=== PATIENT | male | born 1950 | race Caucasian/White ===

== ENCOUNTER 2017-08-14 19:05 | Emergency (ER) | payer BC, OTHER ==
[~2017-08-14] VITALS: Ht 182.9 cm; Wt 67.6 kg
[~2017-08-14 19:05] MED LIST: MULT-506 PO
[2017-08-14 19:08] VITALS: TEMP 36.5; Ht 182.9 cm; Wt 67.6 kg
--- NOTE | 2017-08-14 19:23 | EMERGENCY ROOM VISIT NOTE ---
History Report prepared by Johana: Desmond Gerber Under the Supervision of: Dr. Jamil Horowitz M.D. First contact with patient: 19:13 Chief Complaint: HYPERTENSION Stated Complaint: ELEVATED BLOOD PRESSURE History of Present Illness The patient is a 66 year old male who presents to the Emergency Room with complaints of constant hypertension starting earlier today. The patient states that today he had a blood pressure of 164/142, and he states that he feels like he has some tension in his head. He denies any chest pain or shortness of breath. He denies any weakness in his arms or legs. The patient notes that he was put on amlodipine a month ago, and he states that last night his blood pressure was a little high as well but not as bad as today. He notes that he takes his medications in the morning. The patient reports that he had a blood panel done yesterday, though he does not think that he has every had his thyroid checked before. He states that he has had anxiety problems before with chest pain, and he states that this feels different since he does not have chest pain. Source of History: patient Onset: today Position: other (global) Symptom Intensity: 164/142 Quality: other (hypertension) Associated Symptoms: No chest pain, No SOB, No weakness Note: Associated symptoms: Tension in his head. Review of Systems See HPI for pertinent positives & negatives. A total of 10 systems reviewed and were otherwise negative. Past Medical & Surgical Medical Problems: (1) Carcinoma of prostate (2) Hypercholesterolemia (3) Prostatectomy Social History Smoking Status: Never Smoker Marital Status: Occupation Status: employed Current/Historical Medications Scheduled Multivitamin (Multivitamin), 1 TAB PO DAILY Allergies Coded Allergies: Penicillins (Unverified Allergy, Unknown, unknown - other, 12/31/12) Physical Exam Vital Signs Date Time Temp Pulse Resp B/P (MAP) Pulse Ox O2 Delivery O2 Flow Rate FiO2 08/14/17 20:44 88 17 161/84 96 08/14/17 20:01 149/82 08/14/17 20:00 84 18 96 Room Air 08/14/17 19:40 93 18 163/86 96 Room Air 08/14/17 19:40 96 Room Air 08/14/17 19:08 36.5 112 20 180/95 98 Room Air Physical Exam GENERAL: Patient is in no acute distress. HEENT: No acute trauma, normocephalic atraumatic, mucous membranes moist, no nasal congestion, no scleral icterus. NECK: No stridor, no adenopathy, no meningismus, trachea is midline. LUNGS: Clear to auscultation bilaterally, no wheeze, no rhonchi, breath sounds equal. HEART: Without murmurs gallops or rubs, regular rate and rhythm. ABDOMEN: Soft, nontender, bowel sounds positive, no hernias, no peritonitis. EXTREMITIES: No cyanosis or edema, full range of motion of all the joints without pain or difficulty, no signs for acute trauma. NEUROLOGIC: Oriented x 3, no acute motor or sensory deficits, no focal weakness. SKIN: No rash, no jaundice, no diaphoresis. Medical Decision & Procedures Laboratory Results 08/14/17 19:34 08/14/17 19:34 Test 08/14/17 19:34 Red Blood Count 4.97 M/uL (4.7-6.1) Mean Corpuscular Volume 84.3 fL (80-100) Mean Corpuscular Hemoglobin 28.6 pg (25-34) Mean Corpuscular Hemoglobin Concent 33.9 g/dl (32-36) RDW Standard Deviation 44.3 fL (36.4-46.3) RDW Coefficient of Variation 14.5 % (11.5-14.5) Mean Platelet Volume 10.1 fL (7.4-10.4) Anion Gap 5.0 mmol/L (3-11) Est Creatinine Clear Calc Drug Dose 74.1 ml/min Estimated GFR () 97.0 Estimated GFR (Non- 83.7 BUN/Creatinine Ratio 11.3 (10-20) Calcium Level 9.1 mg/dl (8.5-10.1) Troponin I < 0.015 ng/ml (0-0.045) Thyroid Stimulating Hormone (TSH) 2.370 uIu/ml (0.300-4.500) Laboratory results reviewed by me. ECG Per My Interpretation Indication: other (hypertension) Rate (beats per minute): 83 Rhythm: normal sinus Findings: other (No ST elevation or PVC) ED Course 1912: The patient was evaluated in room B3. A complete history and physical exam was performed. 2027: Reevaluated the patient, and he feels fine and has no concerns. His blood pressure was 140 systolic. Discussed results and discharge instructions: He verbalized understanding and agreement. The patient is ready for discharge. Medical Decision Differential diagnoses considered include essential hypertension, renal failure , electrolyte imbalance, cardiac ischemia, dysrhythmia, and anemia. There is no leukocytosis or concerning anemia. No significant electrolyte abnormality, no kidney failure. The patient appears to be in a euthyroid state. EKG shows a normal sinus rhythm, no acute ischemia. Cardiac enzyme testing 1 is not consistent with acute cardiac injury. The patient's blood pressure began to come down on its own without any medical intervention. I did review the list of his blood pressure readings that he brought along, his blood pressure has been nicely controlled lately. The patient was reassured that his blood pressure was improving. His workup is benign. He has not had chest pain. I do think he can be discharged with an outpatient family doctor follow-up. He will continue to watch his blood pressure. Patient was told that he could take an extra 5 mg Norvasc for persistently high blood pressure, he understands. Medication Reconcilliation Current Medication List: was personally reviewed by me Blood Pressure Screening Patient's blood pressure: Elevated blood pressure Blood pressure disposition: Referred to PCP Impression Primary Impression: Hypertension Scribe Attestation The scribe's documentation has been prepared under my direction and personally reviewed by me in its entirety. I confirm that the note above accurately reflects all work, treatment, procedures, and medical decision making performed by me. Departure Information Dispostion Home / Self-Care Referrals Ashish Castellano D.O. (PCP) Forms HOME CARE DOCUMENTATION FORM, IMPORTANT VISIT INFORMATION Patient Instructions My [facility] Additional Instructions talk with your doctor about today's visit keep a watch on your blood pressure--you may take an extra 5 mg of Norvasc if the blood pressure is persistently high as we discussed lab testing today was all ok your blood pressure came down naturally this evening on its own
[2017-08-14 19:40] VITALS: O2SAT 96
[2017-08-14 19:50] LABS: HEMATOCRIT 41.9 % (42-52); HEMOGLOBIN 14.2 g/dL (14.0-18.0); MEAN CELL VOLUME 84.3 fL (80-100); MEAN CORPUSCULAR HEMOGLOBIN 28.6 pg (25-34); MEAN CORPUSCULAR HGB CONC 33.9 g/dl (32-36); MEAN PLATELET VOLUME 10.1 fL (7.4-10.4); PLATELET COUNT 258 K/uL (130-400); RED CELL DISTRIBUTION WIDTH CV 14.5 % (11.5-14.5); RED CELL DISTRIBUTION WIDTH SD 44.3 fL (36.4-46.3); WHITE BLOOD COUNT 6.67 K/uL (4.8-10.8)
[2017-08-14 20:10] LABS: BLOOD UREA NITROGEN 11 mg/dl (7-18); CALCIUM 9.1 mg/dl (8.5-10.1); CARBON DIOXIDE 30 mmol/L (21-32); CREATININE 0.95 mg/dl (0.60-1.40); GLUCOSE 111 mg/dl (70-99); SODIUM 140 mmol/L (136-145)
[2017-08-14 20:44] VITALS: BP 161/84; PULSE 88; O2SAT 96
== END 2017-08-14 20:44 | disposition home or self-care (01) ==
LOC: C.EDB 19:06
DX: I10 Essential (primary) hypertension (principal); Z90.79 Acquired absence of other genital organ(s); E78.5 Hyperlipidemia, unspecified; Z85.46 Personal history of malignant neoplasm of prostate; Z88.0 Allergy status to penicillin